=== PATIENT | female | born 1995 | race Caucasian/White ===

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

== ENCOUNTER 2018-03-27 07:01 | Emergency (ER) | payer OTHER ==
--- OUTSIDE RECORDS SUMMARY | 2018-03-27 07:16 | XMS REPORT | Continuity of Care Document ---
:1995 Author Organization [facility] Support Name Relationship Address Phone KAREEM ANGUIANO JR [address] [place] [address] KAREEM ANGUIANO JR [address] [place] [address] Allergies and Intolerances Code Code Allergy Type Reaction Severity Start End Status System Substance Date Date 20231214 RXNorm Motrin Propensity to Bleeding Severe Active adverse 4 reactions to drug (disorder) 555086 RXNorm Bee Pollen Drug allergy swelling Mild Active (disorder) 4 Medications RxNorm Medication Dose Route Instructions Start Date End Date Status Precare 1 tab oral orally every day Active Problems Code Code System Problem Name Start Date End Date Status 219146781 SNOMED-CT Hematochezia 03/27/2013 U Active 34133092 SNOMED-CT Abdominal pain 03/27/2013 U Active Procedures No data in the system Results Laboratory Results Order: URINALYSIS ROUTINE Specimen Source : Body Site: Legend: (G,H)=High, (GG,HH,CH,#H)=Above High Threshold, (#,L)=Low, (##,CL,#L,LL)=Below Low Threshold, (C,CC,CA,#A,A)=Abnormal LOINC Test Result Flag Range Units Date 5778-6 1Color Ur YELLOW 03/15/2018 15:57 65588-9 1Turbidity Ur Ql CLEAR CLEAR 03/15/2018 15:57 5811-5 1Sp Gr Ur Strip 1.020 1.000-1.030 03/15/2018 15:57 5803-2 1pH Ur Strip 5.0 5.0-8.0 03/15/2018 15:57 60362-8 1WBC # Ur Strip NEGATIVE NEGATIVE 03/15/2018 15:57 5802-4 1Nitrite Ur Ql Strip NEGATIVE NEGATIVE 03/15/2018 15:57 5804-0 1Prot Ur Strip-mCnc NEGATIVE NEGATIVE mg/dL 03/15/2018 15:57 5792-7 1Glucose Ur Strip-mCnc NORMAL NORMAL mg/dL 03/15/2018 15:57 5797-6 1Ketones Ur Strip-mCnc NEGATIVE NEGATIVE mg/dL 03/15/2018 15:57 91983-1 1Urobilinogen Ur NORMAL NORMAL mg/dL 03/15/2018 15:57 Strip-mCnc 68843-4 1Bilirub Ur Strip-mCnc NEGATIVE NEGATIVE mg/dL 03/15/2018 15:57 5794-3 1Hgb Ur Ql Strip NEGATIVE NEGATIVE 03/15/2018 15:57 Performing Lab Footnotes:[facility] - [id number] - [address] [place] [address] GENESIS [id number] Order: VAGINITIS PANEL Specimen Source: Body Site: Legend: (G,H)=High, (GG,HH,CH,#H)=Above High Threshold, (#,L)=Low, (##,CL,#L,LL)=Below Low Threshold , (C,CC,CA,#A,A)=Abnormal LOINC Test Result Flag Range Units Date 44408-2 1Trichomonas Genital Cult NEGATIVE NEGATIVE 03/15/2018 15:57 10730-1 1G vaginalis DNA Vag Ql NEGATIVE NEGATIVE 03/15/2018 15:57 bDNA 58435-1 1Candida DNA Vag Ql PCR NEGATIVE NEGATIVE 03/15/2018 15:57 1Methodology: DNA Probe Performing Lab Footnotes:[facility] - [id number] - [address] [place] [address] GENESIS Frankel [id number] Microbiology Results w Susceptibilities Order: CULTURE URINE Specimen Source: Urine Body Site: Urine specimen collection, catheterizedCultural Observations:Growth not [id number] Lab Footnotes: [facility] - [id number] - [address] [place] [address] GENESIS [id number] Social History Code Code System Social History Description Dates Observed Observation [id number] SNOMED CT Current Smoking Unknown if ever Status smoked UNK AdministrativeGender Sex Assigned At Unknown Vital Signs No data in the system Goals Section No data in the system Health Concerns No data in the systemEncounter Diagnosis Date Code Code System Diagnosis Status N76.0 ICD10 ACUTE VAGINITIS Active Advance Directives PT STATES NO ADVANCE DIRECTIVES Directive Type Effective Date Store Detective Notes Supporting Document Name Address Phone No Directive Type 05/28/2017 5:18:00 Not Specified Not Specified Not Specified None No specified AM *RHIO - CONSENT IS YES Directive Type Effective Date Store Detective Notes Supporting Document Name Address Phone No Directive Type 10/06/2015 8:38:30 Not Specified Not Specified Not Specified None No specified AM Family History No data in the system Functional Status No data in the system Immunizations Vaccine Code Code System Vaccine Name Date Status UTD Completed Medical Equipment No data in the system Mental Status No data in the system Assessment and Plan Assessments No data in the systemPlan Of Treatment No data in the systemPending Tests No data in the system Hospital Discharge Instructions No data in the system Reason for Visit No data in the system
--- OUTSIDE RECORDS SUMMARY | 2018-03-27 07:16 | XMS REPORT | Continuity of Care Document ---
:1995 External Reference #:[id number] Author Name Gaby Mijares CNM Address [address] [place] [address] Care Team Providers Name Role Phone Glenn Chisholm Primary Care Physician Unavailable Payers Type Date Identification Numbers Payment Provider Subscriber Effective: Policy Number: [id number] Lifetime Benefit Milesthong Camacho 2014 Solution Group Number: [id number] [address] [address] PayID: [id number] [address] Policy Number: [id number] Fidelis Man[employer] Medicaid Latosha Pineda Camacho PayID: [id number] [address] [place] [address] Policy Number: [id number] Medicaid [place] Latosha Pineda Camacho PayID: [id number] [address] [place] [address] Advance Directives Description No Information Available Problems Date Description Provider Status Onset: 12/23/2013 Sprain of wrist Gagan Valdez IV, MD Active Sarah Sanders Onset: 03/06/2014 Contraception care management Ryan Palomino CNM Active Onset: 03/24/2014 Hematuria syndrome Ryan Palomino CNM Active Onset: 03/24/2014 Aftercare Following Surgery Of Gagan Valdez IV, MD Active [facility] Sarah Sanders Onset: 09/01/2014 Vaginitis and vulvovaginitis Ryan Palomino CNM Active Onset: 01/03/2017 Primigravida Rey Prajapati MD Active Onset: 03/28/2017 Encounter for supervision of Rey Prajapati MD Active other normal , third trimester Onset: 04/15/2013 Vaginitis and vulvovaginitis Ryan Palomino CNM Resolved Resolved: 03/06/2014 Family History Date Family Member(s) Problem(s) Comments General Diabetes General Multiple Sclerosis (MS) General Cancer General Rheumatoid Arthritis (mother) Father None Mother Multiple Sclerosis (MS) Children 1 daughter - A&W Siblings 3 alive and well Paternal Grandfather due to Heart Attack () Paternal Grandmother due to Alzheimer's Disease () Maternal Grandfather Heart Disease Maternal Grandfather due to Lung Cancer () Maternal Grandfather Lung Cancer Maternal Grandmother Unknown Social History Type Date Description Comments Sex Unknown Education Highest level completed, 12th grade Marital Status Significant Other Lives With Significant Other Lives With Daughter Diet Healthy, Well Balanced Sleep Sleep Alot Sleep Typically sleeps 10 hours a night Smoke-Free Home is smoke-free Pets several dogs Pets 1 cat Occupation Unemployed Hand Dominance Right-handed Abuse No history of abuse Tobacco Use Start: Unknown Never Smoked Cigarettes Smoking Status Reviewed: Never Smoked Cigarettes 03/15/18 ETOH Use Denies alcohol use Recreational Drug Use Denies Drug Use Tobacco Use Start: Unknown Patient has never smoked Exercise Type/Frequency Exercises regularly Currently Active Patient is currently sexually active Last Lagro 2 days ago Condom Use Always Contraceptive Methods Current methods include levonorgestrel IUD Contraceptive Methods Past methods include condoms Age 1st Lagro 17 Years Old # Partners in a Lifetime over 5 # Partners in a Lifetime Has been with current partner for 3 years STD's No STD History POOJA: 06/09/2017 Estimated Date of Based on LMP Delivery POOJA: 05/24/2017 Estimated Date of Based on 1st Delivery Ultrasound Allergies, Adverse Reactions, Alerts Date Description Reaction Status Severity Comments 11/09/2017 NKDA Active 04/15/2013 NKDA Inactive 01/23/2014 Ibuprofen Inactive Caused bleeding 06/28/2017 Metronidazole Inactive rash Medications Medication Date Status Form Strength Qnty SIG Indications Ordering Provider Mirena (52 MG) 11/07 Active IUD 20mcg/24H 1unit Gaby Albino Qiu CNM Metronidazole 11/09 Hx Tablets 500mg 14tab 1 by Gaby s mouth Rodrick - twice a -Reginald, 11/09 day for 7 CN /2017 days Metronidazole 11/09 Hx Tablets 500mg 14tab 1 by Gaby s mouth Rodrick - twice a -Reginald, 12/19 day for 7 days No Active 11/07 Hx Unknown Medications /2017 - 11/07 Loestrin Fe 05/27 10/09 Hx Tablets 1-20mg-mc 28tab 1 daily Z39.2 g s Nellie - Georgette, [facility] 11/07 Clindesse 06/29 Hx Cream 2% 15gm use applicato Nellie - r Georgette, [facility] 11/07 intravagi pratibha x 3 nights Metrogel-Vaginal 06/27 Hx Gel 0.75% 1tube one applicato Nellie - rful Georgette, [facility] 06/28 every bedtime x 5 d Norethindrone 06/26 Hx Tablets 0.35mg 1pack i by Z39.2 mouth Nellie - every day Georgette, [facility] 10/09 Terazol 7 04/10 Hx Cream 0.4% 45gm 1 applicato Tony, - rful x 7 CN 04/17 /2016 11/22 Hx Tablets 28-0.8mg 90tab 1 by Danyell /2017 s mouth [place], - every day [facility] 11/07 compatib ae w/ pt's insurance No Active 10/31 Hx Unknown Medications /2016 - 11/22 Metronidazole 04/26 Hx Tablets 500mg 14tab 1 by s mouth Nellie - twice a Georgette, [facility] 10/31 day for days No Active 04/22 Hx Unknown Medications /2015 - 04/26 Metronidazole 12/20 Hx Tablets 500mg 14tab 1 by Elizabeth Gracia s mouth Kirill Robles, - twice a 05/22 day for days No Active 12/17 Hx Unknown Medications /2015 - 12/17 Xulane 12/17 Hx Patches 150-35mcg 3unit use N76.0 Elizabeth Gracia /2015 Weekly /24HR s weekly as Kirill Robles - directed 05/22 Sulfamethoxazole/ 12/17 Hx Tablets 800-160mg 6tabs 1 tab by N76.0 Elizabeth Gracia Trimethoprim mouth Van Riper, - twice a 05/22 day for days Fluconazole 09/02 Hx Tablets 150mg 1tabs take 1 tablet by Nellie - bruno for ROZINA Palomino 05/08 1 dose /2015 Nitrofurantoin 03/24 Hx Capsules 100mg 14cap 1 by V72.41 Marjoria Monohydrate/Macro s mouth Nellie crystals - twice a ROZINA Palomino /2014 Acetaminophen-Cod 01/23 Hx Tablets 300-30mg 30tab 1-2 tabs Gagan perdomo # s by mouth Kaempffe - every 6 IV 03/05 hours as Faaos, needed Facs for pain Voltaren 12/23 Hx Gel 1% 1Tube disp 1-100 g Kaempffe - tube IV 03/05 apply 2 Faaos, grams to Facs affected joint up to 4 times daily Ortho Evra 12/02 Hx Patches 150-35mcg 3unit 1 patch Weekly /24HR s each week Nellie - x 3 wks. RZOINA Palomino 05/19 1 patch free week. repeat cycle every 4 wks. Metronidazole 04/16 Hx Tablets 500mg 14tab 1 po bid s for 7 - ROZINA Palomino 07/02 No Active 04/15 Hx [facility] Nellie Palomino CNM 04/15 Medroxyprogestero 04/15 Hx Suspension 150mg/ml 1unit bring to [facility] ne s office Nellie Palomino CNM 12/02 Abx For Infected 00 Hx Unknown Tooth /0000 - 04/22 Amoxicillin Hx Tablets 500mg 1 by Unknown /0000 mouth - three 10/31 times day Reglan 00 Hx Tablets 5mg 1 by Unknown /0000 mouth prn - 10/31 Reeders 0000 Hx Tablets 5-325mg take 1-2 Unknown /0000 by mouth - every 6 10/31 hours needed. Monistat 7 Simply 00 Hx Cream 2% sig as Unknown Cure /0000 directed - 12/04 Medications Administered in Office Medication Date Status Form Strength Qnty SIG Indications Ordering Provider Therapeutic/Pr Administered Injection Ryan ophylactic/Liliane Agustin Palomino CNM Inj(Subcu/Im) (Specify Drug) Immunizations Description No Information Available Vital Signs Date Vital Result Comment 03/15/2018 3:51pm Weight 129.00 lb Weight 58.514 kg BMI (Body Mass Index) 21.0 kg/m2 BP Systolic 94 mmHg BP Diastolic 50 mmHg Height 65.75 inches 5'5.75" Height in cm's 167.0 cm 1 Parity 1 12/19/2017 10:43am Weight 131.00 lb Weight 59.422 kg BP Systolic 96 mmHg BP Diastolic 60 mmHg 11/14/2017 3:24pm Weight 131.00 lb Weight Percentile 55th Weight 59.422 kg BP Systolic 90 mmHg BP Diastolic 58 mmHg Height Percentile 3 % 11/07/2017 3:10pm BP Systolic 98 mmHg BP Diastolic 54 mmHg 07/31/2017 2:09pm Weight 139.00 lb Weight Percentile 68th Weight 63.050 kg BMI (Body Mass Index) 22.6 kg/m2 Body Mass Index Percentile 61 % BP Systolic 104 mmHg BP Diastolic 60 mmHg Height 65.75 inches 5'5.75" Height in cm's 167.0 cm Height Percentile 72 % Last Menstrual Period [id number] 1 Parity 1 07/31/2017 12:39pm Height 65.75 inches 5'5.75" Height in cm's 167.0 cm Height Percentile 72 % 1 Parity 1 06/26/2017 8:13am Weight 142.00 lb Weight Percentile 72nd Weight 64.411 kg BMI (Body Mass Index) 23.1 kg/m2 Body Mass Index Percentile 65 % BP Systolic 104 mmHg BP Diastolic 50 mmHg Height 65.75 inches Height in cm's 167.0 cm Height Percentile 72 % 1 Parity 1 11/22/2016 11:49am Weight 121.00 lb Weight Percentile 39th Weight 54.886 kg BMI (Body Mass Index) 19.7 kg/m2 Body Mass Index Percentile 25 % BP Systolic 108 mmHg BP Diastolic 60 mmHg Height 65.75 inches 5'5.75" Measured Today Height in cm's 167.0 cm Height Percentile 72 % Last Menstrual Period [id number] 1 Parity 0 11/07/2016 4:07pm Weight 122.00 lb Weight Percentile 42nd Weight 55.339 kg BMI (Body Mass Index) 20.3 kg/m2 Body Mass Index Percentile 34 % BP Systolic 120 mmHg BP Diastolic 68 mmHg Height 65 inches 5'5" Height in cm's 165.1 cm Height Percentile 61 % Last Menstrual Period [id number] 1 04/22/2016 2:36pm Weight 122.00 lb Weight Percentile 44th Weight 55.339 kg BMI (Body Mass Index) 20.3 kg/m2 Body Mass Index Percentile 36 % BP Systolic 108 mmHg BP Diastolic 64 mmHg Body Temperature 98.4 F Height 65 inches 5'5" Height in cm's 165.1 cm Height Percentile 62 % Last Menstrual Period [id number] 0 03/22/2016 11:12am Weight 118.00 lb Weight Percentile 36th Weight 53.525 kg BMI (Body Mass Index) 19.6 kg/m2 Body Mass Index Percentile 27 % BP Systolic 102 mmHg BP Diastolic 60 mmHg Height 65 inches 5'5" Height in cm's 165.1 cm Height Percentile 62 % 0 12/18/2015 8:34am Weight 118.00 lb Weight Percentile 38th Weight 53.525 kg BP Systolic 110 mmHg BP Diastolic 70 mmHg 0 09/01/2014 8:02am Weight 119.00 lb Weight Percentile 46th Weight 53.978 kg BMI (Body Mass Index) 19.8 kg/m2 Body Mass Index Percentile 37 % BP Systolic 108 mmHg BP Diastolic 62 mmHg Height 65 inches 5'5" Height in cm's 165.1 cm Height Percentile 64 % Last Menstrual Period [id number] 0 03/24/2014 1:00pm Weight 116.00 lb Weight Percentile 43rd Weight 52.618 kg BMI (Body Mass Index) 19.3 kg/m2 Body Mass Index Percentile 32 % BP Systolic 104 mmHg BP Diastolic 58 mmHg Body Temperature 98.1 F Height 65 inches 5'5" Height in cm's 165.1 cm Height Percentile 65 % Last Menstrual Period [id number] 0 03/06/2014 1:41pm Weight 116.00 lb Weight Percentile 43rd Weight 52.618 kg BMI (Body Mass Index) 19.3 kg/m2 Body Mass Index Percentile 33 % BP Systolic 112 mmHg BP Diastolic 68 mmHg Height 65 inches 5'5" Height in cm's 165.1 cm Height Percentile 65 % 0 01/23/2014 11:24am BP Systolic 108 mmHg BP Diastolic 78 mmHg Heart Rate 90 /min Respiratory Rate 18 /min 12/02/2013 3:42pm Weight 116.00 lb Weight Percentile 45th Weight 52.618 kg BMI (Body Mass Index) 19.3 kg/m2 Body Mass Index Percentile 34 % BP Systolic 92 mmHg BP Diastolic 58 mmHg Height 65 inches 5'5" Height in cm's 165.1 cm Height Percentile 65 % Last Menstrual Period [id number] 0 11/26/2013 10:19am Weight 115.00 lb Weight Percentile 43rd Weight 52.164 kg BMI (Body Mass Index) 19.1 kg/m2 Body Mass Index Percentile 32 % BP Systolic 118 mmHg BP Diastolic 68 mmHg Heart Rate 78 /min Height 65 inches 5'5" Height in cm's 165.1 cm Height Percentile 65 % O2 % BldC Oximetry 99 % 09/27/2013 3:01pm Weight 118.00 lb Weight Percentile 50th Weight 53.525 kg BMI (Body Mass Index) 19.6 kg/m2 Body Mass Index Percentile 40 % BP Systolic 110 mmHg BP Diastolic 68 mmHg Height 65 inches 5'5" Height in cm's 165.1 cm Height Percentile 66 % 0 07/02/2013 2:40pm Weight 116.00 lb Weight Percentile 47th Weight 52.618 kg BMI (Body Mass Index) 19.3 kg/m2 Body Mass Index Percentile 37 % BP Systolic 120 mmHg BP Diastolic 64 mmHg Height 65 inches 5'5" Height in cm's 165.1 cm Height Percentile 66 % 04/15/2013 8:51am Weight 115.00 lb Weight Percentile 47th Weight 52.164 kg BMI (Body Mass Index) 19.1 kg/m2 Body Mass Index Percentile 36 % BP Systolic 114 mmHg BP Diastolic 60 mmHg Height 65 inches 5'5" Height in cm's 165.1 cm Height Percentile 67 % Last Menstrual Period [id number] Results Test Date Facility Test Result H/L Range Note Urinalysis Routine 03/15/2018 [facility] Color YELLOW [phone] Appearance CLEAR Clear Specific [place] 1.020 1.000-1.030 pH 5.0 5.0-8.0 Leukocytes NEGATIVE Negative Nitrate NEGATIVE Negative Protein NEGATIVE mg/dL Negative Glucose NORMAL mg/dL Normal Ketone NEGATIVE mg/dL Negative Urobilinogen NORMAL mg/dL Normal Bilirubin NEGATIVE mg/dL Negative Hemoglobin NEGATIVE Negative Laboratory test 03/15/2018 [facility] Culture Urine <pending> finding [phone] GC Chlamydia Amp 11/07/2017 [facility] Chlamydia NEGATIVE Negative 1 Assay [phone] GC NEGATIVE Negative 2 Vaginitis Panel 11/07/2017 [facility] Trichomonas NEGATIVE Negative [phone] Antigen Gardnerella Antigen POSITIVE Negative Leanne Antigen NEGATIVE Negative Vagpnl Methodology Methodology: DNA <SEE NOTE> 3 Vaginitis Panel 06/26/2017 [facility] Trichomonas NEGATIVE Negative [phone] Antigen Gardnerella Antigen POSITIVE Negative Leanne Antigen NEGATIVE Negative Vagpnl Methodology Methodology: DNA <SEE NOTE> 4 GC Chlamydia Amp 06/26/2017 [facility] Specimen Type Endocervical Swa 5 Assay [phone] <SEE NOTE> Chlamydia NEGATIVE Negative 6 GC NEGATIVE Negative 7 GCCT Amp Methodology Methodology: Nuc <SEE NOTE> 8 Group B Strep 04/27/2017 [facility] Culture CULTURE 9 Culture [phone] OBSERVAT <SEE NOTE> Vaginitis 04/06/2017 [facility] Trichomonas NEGATIVE Negative Panel [phone] Antigen Gardnerella Antigen NEGATIVE Negative Leanne Antigen POSITIVE Negative Vagpnl Methodology Methodology: DNA <SEE NOTE> 10 CBC W/Auto Differential 03/01/2017 [facility] WBC 11.4 K/uL High 4.8-10.8 [phone] RBC 4.30 M/uL 4.20-5.40 Hemoglobin 13.6 gm/dL 12.0-16.0 Hematocrit 39.9 % 36.0-48.0 MCV 92.7 fL 80.0-100.0 MCHC 34.2 % 30.0-36.5 MCH 31.7 pg 27.0-34.0 RDW 12.1 % 11.0-15.0 Platelet 230 K/uL 130-450 MPV 7.9 fL 6.0-12.0 NE% 80 % 37-80 Ly% 13 % 10-50 Mo% 6 % 0-12 Eo% 1 % <=8 Ba% 0 % <=3 NE# 9.1 K/uL High 1.8-8.6 Lymph# 1.5 K/uL 0.5-5.0 Bea[place]# 0.6 K/uL 0.0-1.3 Eos# 0.1 K/uL 0.0-0.9 Baso# 0.0 K/ul 0.0-0.3 Laboratory test 03/01/[facility] Glucose 1HR 114 mg/dL <= 130 finding [phone] (OB) [place] CBC W/Auto 01/03/2017 [facility] WBC 9.2 K/uL 4.8-10.8 Differential [phone] RBC 4.30 M/uL 4.20-5.40 Hemoglobin 13.3 gm/dL 12.0-16.0 Hematocrit 39.3 % 36.0-48.0 MCV 91.5 fL 80.0-100.0 MCHC 33.7 % 30.0-36.5 MCH 30.8 pg 27.0-34.0 RDW 11.9 % 11.0-15.0 Platelet 251 K/uL 130-450 MPV 7.3 fL 6.0-12.0 NE% 75 % 37-80 Ly% 17 % 10-50 Mo% 7 % 0-12 Eo% 1 % <=8 Ba% 0 % <=3 NE# 6.9 K/uL 1.8-8.6 Lymph# 1.6 K/uL 0.5-5.0 Bea[place]gard# 0.6 K/uL 0.0-1.3 Eos# 0.1 K/uL 0.0-0.9 Baso# 0.0 K/ul 0.0-0.3 With 11/22/2016 [facility] Rubella IgG 2.80 index Immune 11 Type/Screen [phone] Immunity >0.99 Titer [So] Hepatitis B Surface Antigen NON REACTIVE Non Reactive Syphilis RPR 11/22/2016 [facility] RPR NON REACTIVE Non Reactive [phone] RPR Methodology Methodology: Non <SEE NOTE> 12 Blood Type & Screen 11/22/2016 [facility] Abo/Rh Typing A Rh Positive [phone] Specimen Expiration Date [id number] Antibody Screen Negative HIV Ag/AB 11/22/2016 [facility] HIV Ag/Ab Combo NON Non 13 Combo [phone] REACTIVE Reactive Laboratory 11/22/2016 [facility] Culture Urine CULTURE 14 test finding [phone] OBSERVAT <SEE NOTE> Urine Drug 11/22/2016 [facility] Amphetamine + NEGATIVE Negative Screen [phone] mAmp Barbiturate NEGATIVE Negative Benzodiazepine NEGATIVE Negative Opiates NEGATIVE Negative Cocaine NEGATIVE Negative THC NEGATIVE Negative PCP NEGATIVE Negative Methadone NEGATIVE Negative Utox Range 1 A Positive Drug <SEE NOTE> 15 Utoxrefvista Positive Cut-Off <SEE NOTE> 16 GC Chlamydia 11/22/2016 [facility] Specimen Type Endocervical Swa 17 Amp Assay [phone] <SEE NOTE> Chlamydia NEGATIVE Negative 18 GC NEGATIVE Negative 19 GCCT Amp Methodology Methodology: Nuc <SEE NOTE> 20 Urinalysis Routine 11/22/2016 [facility] Color YELLOW [phone] Appearance CLEAR Clear Specific [place] 1.015 1.000-1.030 pH 6.5 5.0-8.0 Leukocytes NEGATIVE Negative Nitrate NEGATIVE Negative Protein NEGATIVE mg/dL Negative Glucose NORMAL mg/dL Normal Ketone TRACE mg/dL Negative Urobilinogen NORMAL mg/dL Normal Bilirubin NEGATIVE mg/dL Negative Hemoglobin NEGATIVE Negative Laboratory test 11/07/2016 [facility] Culture Urine CULTURE 21 finding [phone] OBSERVAT <SEE NOTE> Urinalysis Routine 11/07/2016 [facility] Color YELLOW [phone] Appearance CLOUDY Clear Specific [place] 1.015 1.000-1.030 pH 8.0 5.0-8.0 Leukocytes 2+ Negative Nitrate NEGATIVE Negative Protein NEGATIVE mg/dL Negative Glucose NORMAL mg/dL Normal Ketone NEGATIVE mg/dL Negative Urobilinogen NORMAL mg/dL Normal Bilirubin NEGATIVE mg/dL Negative Hemoglobin NEGATIVE Negative Urine Microscopic 11/07/2016 [facility] Urine Micro URINE MICROSCOPI 22 [phone] <SEE NOTE> WBC 5-10 /HPF 0-2 RBC NONE SEEN /HPF None Seen Bacteria MANY /HPF None Seen Epithelial Cells FEW /HPF None Seen Amorphous Sediment 2+ /HPF None Seen GC Chlamydia 04/22/2016 [facility] Specimen Type Endocervical Swa 23 Amp Assay [phone] <SEE NOTE> Chlamydia NEGATIVE Negative 24 GC NEGATIVE Negative 25 GCCT Amp Methodology Methodology: Nuc <SEE NOTE> 26 Vaginitis Panel 04/22/2016 [facility] Trichomonas NEGATIVE Negative [phone] Antigen Gardnerella Antigen POSITIVE Negative Leanne Antigen NEGATIVE Negative Vagpnl Methodology Methodology: DNA <SEE NOTE> 27 STD Panel 12/18/2015 [facility] Hep B Core NON REACTIVE Non Reactive -LVR [phone] Ab, Ig M Hep A Ab, IgM NEGATIVE Negative Hepatitis B Surface Antigen NON REACTIVE Non Reactive Hep C Virus Ab (HCV) 0.10 s/coratio 0.00-0.99 28 Syphilis RPR 12/18/2015 [facility] RPR NON REACTIVE Non Reactive [phone] RPR Methodology Methodology: Non <SEE NOTE> 29 HIV Ag/AB 12/18/2015 [facility] HIV Ag/Ab NON REACTIVE Non Reactive 30 Combo [phone] Combo Culture 12/18/2015 [facility] Culture Routine 31 Urine [phone] suscepti <SEE NOTE> Isolate 1 >100,000 col/mL <SEE NOTE> 32 Isolate 2 . Urinalysis Routine 12/18/2015 [facility] Color YELLOW [phone] Appearance CLOUDY Clear Specific [place] 1.015 1.000-1.030 pH 6.5 5.0-8.0 Leukocytes 1+ Negative Nitrate POSITIVE Negative Protein NEGATIVE mg/dL Negative Glucose NORMAL mg/dL Normal Ketone NEGATIVE mg/dL Negative Urobilinogen NORMAL mg/dL Normal Bilirubin NEGATIVE mg/dL Negative Hemoglobin 1+ Negative Urine Microscopic 12/18/2015 [facility] Urine Micro URINE MICROSCOPI 33 [phone] <SEE NOTE> WBC >100 /HPF 0-2 RBC NONE SEEN /HPF None Seen Bacteria MODERATE /HPF None Seen Epithelial Cells MODERATE /HPF None Seen GC Chlamydia 12/18/2015 [facility] Specimen Type Endocervical Swa 34 Amp Assay [phone] <SEE NOTE> Chlamydia NEGATIVE Negative 35 GC NEGATIVE Negative 36 GCCT Amp Methodology Methodology: Str <SEE NOTE> 37 Vaginitis Panel 12/18/2015 [facility] Trichomonas NEGATIVE Negative [phone] Antigen Gardnerella Antigen POSITIVE Negative Leanne Antigen NEGATIVE Negative Vagpnl Methodology Methodology: DNA <SEE NOTE> 38 Vaginitis Panel 09/01/2014 [facility] Trichomonas NEGATIVE Negative [phone] Antigen Gardnerella Antigen NEGATIVE Negative Leanne Antigen POSITIVE Negative Vagpnl Methodology Methodology: DNA <SEE NOTE> 39 GC Chlamydia 09/01/2014 [facility] Specimen Type Endocervical Swa 40 Amp Assay [phone] <SEE NOTE> Chlamydia NEGATIVE Negative 41 GC NEGATIVE Negative 42 GCCT Amp Methodology Methodology: Str <SEE NOTE> 43 Urine Microscopic 03/24/2014 [facility] Urine Micro URINE MICROSCOPI 44 [phone] <SEE NOTE> WBC 10-25 /HPF 0-2 RBC 10-25 /HPF None Seen 45 Bacteria FEW /HPF None Seen Epithelial Cells FEW /HPF None Seen Vaginitis Panel 03/24/2014 [facility] Trichomonas NEGATIVE Negative [phone] Antigen Gardnerella Antigen NEGATIVE Negative Leanne Antigen NEGATIVE Negative Vagpnl Methodology Methodology: DNA <SEE NOTE> 46 GC Chlamydia 03/24/2014 [facility] Specimen Type Endocervical Swa 47 Amp Assay [phone] <SEE NOTE> Chlamydia NEGATIVE Negative 48 GC NEGATIVE Negative 49 GCCT Amp Methodology Methodology: Str <SEE NOTE> 50 Laboratory test 03/24/2014 [facility] Culture Urine CULTURE 51 finding [phone] OBSERVAT <SEE NOTE> Urinalysis Routine 03/24/2014 [facility] Color YELLOW [phone] Appearance CLEAR Clear Specific [place] 1.020 1.000-1.030 pH 6.0 5.0-8.0 Leukocytes TRACE Negative Nitrate NEGATIVE Negative Protein NEGATIVE mg/dL Negative Glucose NORMAL mg/dL Normal Ketone NEGATIVE mg/dL Negative Urobilinogen NORMAL mg/dL Normal Bilirubin NEGATIVE mg/dL Negative Hemoglobin 1+ Negative CBC W/Auto Differential 12/23/2013 [facility] ([facility]) WBC 4.8 K/uL 4.5-13.[address] [place] [address] [phone] RBC 4.95 M/uL 4.30-5.30 Hemoglobin 15.0 gm/dL 12.0-16.0 Hematocrit 44.5 % 36.0-46.0 MCV 89.9 fL 77.0-95.0 MCHC 33.8 % 30.0-36.5 MCH 30.4 pg 25.0-33.0 RDW 11.7 % 11.0-15.0 Platelet 261 K/uL 130-450 MPV 7.4 fL 6.0-12.0 NE% 59 % 28-78 Ly% 34 % 18-54 Mo% 6 % 0-12 Eo% 2 % <=11 Ba% 0 % <=2 NE# 2.8 K/uL 1.3-10.5 Lymph# 1.6 K/uL 0.8-7.3 [place]# 0.3 K/uL 0.0-1.6 Eos# 0.1 K/uL 0.0-1.5 Baso# 0.0 K/ul 0.0-0.3 Laboratory test 12/23/2013 [facility] ([facility]) C Reactive <0.3 mg/dL 0.0-0.[address] [place] [address] [phone] Sedrate Esr 3.0 mm/hr 0.0-20.0 Rheumatoid 12/23/2013 [facility] ([facility]) Rheumatoid Factor NEGATIVE Negative Factor-RF [address] [place] [address] [phone] RF Methodology Methodology: Lat <SEE NOTE> 52 Anita Titer 12/23/2013 [facility] ([facility]) Anita NEGATIVE Negative [address] [place] [address] [phone] Anita Methodology Test Substrate: <SEE NOTE> 53 Vaginitis Panel 04/15/2013 [facility] Trichomonas NEGATIVE Negative [phone] Antigen Gardnerella Antigen POSITIVE Negative Leanne Antigen NEGATIVE Negative Vagpnl Methodology Methodology: DNA <SEE NOTE> 54 GC Chlamydia 04/15/2013 [facility] Specimen Type Endocervical Swa 55 Amp Assay [phone] <SEE NOTE> Chlamydia NEGATIVE Negative 56 GC NEGATIVE Negative 57 GCCT Amp Methodology Methodology: Str <SEE NOTE> 58 1 A negative result does not rule out Chlamydia trachomatis infection because results are dependent on adequate specimen collection, absence of inhibitors, and sufficient DNA to be detected. Methodology: Nucleic Acid Amplification (EMPERATRIZ) 2 A negative result does not rule out Neisseria gonorrhoeae infection because results are dependent on adequate specimen collection, absence of inhibitors, and sufficient DNA to be detected. 3 Methodology: DNA Probe 4 Methodology: DNA Probe 5 Endocervical Swab 6 A negative result does not rule out Chlamydia trachomatis infection because results are dependent on adequate specimen collection, absence of inhibitors, and sufficient DNA to be detected. 7 A negative result does not rule out Neisseria gonorrhoeae infection because results are dependent on adequate specimen collection, absence of inhibitors, and sufficient DNA to be detected. 8 Methodology: Nucleic Acid Amplification Test (NAAT) 9 CULTURE OBSERVATIONS CULTURE OBSERVATIONS Streptococcus agalactiae (Group B) was NOT isolated 10 Methodology: DNA Probe 11 Non-immune <0.90 Equivocal 0.90 - 0.99 Immune >0.99 12 Methodology: Nontreponemal Flocculation Test 13 Methodology: [employer] [id number] Chemiluminescent Microparticle Assay Specificityof >99% Sensitivity of >94% 14 CULTURE OBSERVATIONS CULTURE OBSERVATIONS Growth not obtained 15 A Positive Drug Screen will not be Confirmed unless requested by the Physician. Please contact the Lab ([phone]) within 5 days for Confirmation Testing. 16 Positive Cut-Off Values Alva Measurement Supervisor Analyzer Amphetamine/ mAMP 1000 ng/ml Barbiturate 200 ng/ml Benzodiazepine 200 ng/ ml Cocaine 300 ng/ml Opia te 300 ng/ml Marijuana (THC) 50 ng/ml Phencyclidine (PCP) 25 ng/ml Methadone 300 ng/ml 17 Endocervical Swab 18 A negative result does not rule out Chlamydia trachomatis infection because results are dependent on adequate specimen collection, absence of inhibitors, and sufficient DNA to be detected. 19 A negative result does not rule out Neisseria gonorrhoeae infection because results are dependent on adequate specimen collection, absence of inhibitors, and sufficient DNA to be detected. 20 Methodology: Nucleic Acid Amplification Test (NAAT) 21 CULTURE OBSERVATIONS CULTURE OBSERVATIONS Light Mixed growth consistent with vaginal yolande present 22 URINE MICROSCOPIC EXAM 23 Endocervical Swab 24 A negative result does not rule out Chlamydia trachomatis infection because results are dependent on adequate specimen collection, absence of inhibitors, and sufficient DNA to be detected. 25 A negative result does not rule out Neisseria gonorrhoeae infection because results are dependent on adequate specimen collection, absence of inhibitors, and sufficient DNA to be detected. 26 Methodology: Nucleic Acid Amplification Test (NAAT) 27 Methodology: DNA Probe 28 Non Reactive: < 0.79 Equviocal: 0.80 - 0.99 Reactive: > 1.00 . The CDC recommends that a positive HCV antibody result be followed up with a HCV Nucleic Acid Amplification test. 29 Methodology: Nontreponemal Flocculation Test 30 Methodology: ALVA AREA SUPERVISOR [id number] Chemiluminescent Microparticle Assay Specificityof >99% Sensitivity of >94% 31 Routine susceptibility testing of Staphylococcus saprophyticus urine isolates is not performed. Acute, uncomplicated urinary tract infections commonly respond to nitrofurantoin, trimethoprim sulfa or a fluoroquinolone. 32 >100,000 col/mL Staphylococcus saprophyticus 33 URINE MICROSCOPIC EXAM 34 Endocervical Swab 35 A negative result does not rule out Chlamydia trachomatis infection because results are dependent on adequate specimen collection, absence of inhibitors, and sufficient DNA to be detected. 36 A negative result does not rule out Neisseria gonorrhoeae infection because results are dependent on adequate specimen collection, absence of inhibitors, and sufficient DNA to be detected. 37 Methodology: Strand Displacement Amplification 38 Methodology: DNA Probe 39 Methodology: DNA Probe 40 Endocervical Swab 41 A negative result does not rule out Chlamydia trachomatis infection because results are dependent on adequate specimen collection, absence of inhibitors, and sufficient DNA to be detected. 42 A negative result does not rule out Neisseria gonorrhoeae infection because results are dependent on adequate specimen collection, absence of inhibitors, and sufficient DNA to be detected. 43 Methodology: Strand Displacement Amplification 44 URINE MICROSCOPIC EXAM 45 The [employer] has defined Microscopic Hematuria as 3 or more RBC per high powered field from a single positive urinalysis with microscopy. 46 Methodology: DNA Probe 47 Endocervical Swab 48 A negative result does not rule out Chlamydia trachomatis infection because results are dependent on adequate specimen collection, absence of inhibitors, and sufficient DNA to be detected. 49 A negative result does not rule out Neisseria gonorrhoeae infection because results are dependent on adequate specimen collection, absence of inhibitors, and sufficient DNA to be detected. 50 Methodology: Strand Displacement Amplification 51 CULTURE OBSERVATIONS CULTURE OBSERVATIONS Mixed growth consistent with vaginal yolande present including Rare Streptococcus agalactiae (Group B) MRSA screen test negative 52 Methodology: Latex Agglutination 53 Test Substrate: Human Epithelial (HEp-2) Cells Methodology: Indirect Fluorescent Antibody Test 54 Methodology: DNA Probe 55 Endocervical Swab 56 A negative result does not rule out Chlamydia trachomatis infection because results are dependent on adequate specimen collection, absence of inhibitors, and sufficient DNA to be detected. 57 A negative result does not rule out Neisseria gonorrhoeae infection because results are dependent on adequate specimen collection, absence of inhibitors, and sufficient DNA to be detected. 58 Methodology: Strand Displacement Amplification Procedures Date Code Description Status 11/14/2017 55492 Ultrasound,Pelvic (Nonobstertic) Completed 11/07/2017 25572 IUD Insertion Of Intrauterine Device Completed 05/28/2017 48737 Vaginal Delivery,Antepartum And Care Completed 05/10/2017 89343 Non-Stress Test Completed 01/03/2017 93914 Ultrasound Uterus,Real Time W.Image Documentation,After Completed 1St Trim 11/07/2016 56111 Ultrasound, Uterus, Real Time W/Image Completed Documentation, 02/04/2014 09302 Arthroscopy Wrist Excision/Repair Triang Completed Fibrocartilage/Debride 09/27/2013 40961 Therapeutic/Prophylactic/Diagnostic Inj(Subcu/Im) (Specify Completed Drug) 07/02/2013 90615 Therapeutic/Prophylactic/Diagnostic Inj(Subcu/Im) (Specify Completed Drug) 04/15/2013 95874 Therapeutic/Prophylactic/Diagnostic Inj(Subcu/Im) (Specify Completed Drug) 1997 63688 IV Infusion Up To 1 Hour Completed Encounters Type Date Location Provider Dx Diagnosis Office Visit 12/19/2017 [facility] Gaby Z30.431 Encounter for 10:45a And Gynecology [facility] routine checking of k, CNM intrauterine contracep dev Office Visit 11/14/2017 [facility] Gaby Z30.431 Encounter for 3:15p [facility] routine checking of k, CNM intrauterine contracep dev Office Visit 04/06/2017 [facility] Sandrine Jimenez, O47.03 False labor before 2:15p And Gynecology CNM 37 completed weeks of gest, third tri Z3A.33 33 weeks gestation of Office Visit 11/07/2016 2:00p [facility] Delores Pool, N91.1 Secondary And Gynecology Ups M.D. amenorrhea Z34.01 Encntr for suprvsn of normal first preg, first trimester Office Visit 04/22/2016 2:45p [facility] Ryan Ballard Z32.02 Encounter for And Gynecology ROZINA Palomino test, Ups result negative N92.6 Irregular menstruation, unspecified N89.8 Other specified noninflammatory disorders of vagina N77.1 Vaginitis, vulvitis and vulvovaginitis in dis classd elswhr Office Visit 03/22/2016 11:00a [facility] Elizabeth Roy Z01.419 Encntr for ring maker And Gynecology MD Travis exam (general) (routine) w/o abn findings Z32.02 Encounter for test, result negative Office Visit 12/18/2015 8:30a [facility] Elizabeth Roy N76.0 Acute vaginitis And Gynecology MD Travis Z30.018 Encounter for initial prescription of other contraceptives N39.0 Urinary tract infection, site not specified Z32.02 Encounter for test, result negative Office Visit 09/01/2014 8:00a [facility] Marrubyrifinesse Ballard V74.5 Screening And Gynecology Georgette, CNM Examination Venereal Disease V69.2 Sexual Behavior High Risk Office Visit 03/24/2014 1:00p [facility] Candelariorifinesse Ballard V72.41 Test And Gynecology Georgette, CNM Negative 599.70 Hematuria, Unspecified Office Visit 03/06/2014 1:45p [place] Ryan Ballard V25.9 Contraceptive Obstetrics And Georgette, CNM Management Unspec Gynecology Ups V72.41 Test Negative Office Visit 01/23/2014 [facility] V Ipson, 842.00 Sprains & Strains 10:30a Joint Jr Rocha Wrist & Hand Unspec Site Office Visit 01/13/2014 [facility] Gagan 842.00 Sprains & Strains 3:30p Joint - Cait Valdez IV, MD Wrist & Hand Faaos, Facs Unspec Site Office Visit 12/23/2013 [facility] 842.00 Sprains & Strains 10:00a Joey Valdez IV, MD Wrist & Hand Faaos, Facs Unspec Site Office Visit 12/02/2013 [facility] Ryan Ballard V25.9 Contraceptive 3:45p And Gynecology Georgette, CNM Management Unspec Office Visit 11/26/2013 [facility] 842.00 Sprains & Strains 10:00a Orthopaedic MD Susan [facility] Unspec Site Office Visit 07/02/2013 [facility] Ryan Ballard V72.41 Test 3:15p And Gynecology Georgette, CNM Negative V25.9 Contraceptive Management Unspec 626.4 Irregular Menstrual Cycle Office Visit 04/15/2013 8:45a [facility] Ryan Ballard V72.41 Test And Gynecology Georgette, CNM Negative V25.9 Contraceptive Management Unspec 626.4 Irregular Menstrual Cycle Plan of Treatment 03/15/2018 - Gaby Mijares, CNMN76.0 Acute shftifmgrN05.0 DysuriaComments:Affirm collected and sent. Will treat if necessary. Straight cath urine sent d/t h/o kidney issues and pt current c/o cramping. WIll treat if necessary. RTO for annual or prn
[2018-03-27 07:22] VITALS: BP 129/76
[2018-03-27] MEDS ORDERED: Ibuprofen TAB* 600 MG PO ONE (07:30)
[2018-03-27] MEDS ORDERED: Cephalexin CAP* 500 MG PO ONE (07:30)
--- NOTE | 2018-03-27 07:39 | UC ---
Breast Complaint - HPI Summary HPI Summary: right breast pain x 1 day woke up this morning with the discomfort pain is on right breast, no radiation , pain is 6 out of 10 , worse with touching , better with rest, no fever, + body aches , no discharge - History of Current Complaint Hx Obtained From: Patient Breast Chief Complaint: Pain, Nipple, Breast - right side, Right, Inflammation Onset/Duration: Started Hours Ago - 5, Still Present Timing: Constant Breast Pain Radiates To: Other: - no radiation Breast Pain Aggravating Factors: Palpation Breast Pain Alleviating Factors: Heat Breast Associated Signs/Symptoms: Warmth - Allergy/Home Medications Allergies/Adverse Reactions: Allergies Allergy/AdvReac Type Severity Reaction Status Date / Time bee venom protein (honey bee) Allergy Anaphylatic Verified 03/27/18 07:17 Shock Home Medications: Home Medications FLUoxetine CAP* [PROzac CAP*] 20 mg PO DAILY 03/27/18 [History Confirmed ] Levonorgestrel (Iud) [Mirena IUD] 20 mcg IU ONCE 03/27/18 [History Confirmed ] PMH/Surg Hx/FS Hx/Imm Hx Psychological History: Anxiety - Surgical History Surgical History: Yes Surgery Procedure, Year, and Place: right wrist repair of torn tendon - Family History Known Family History: Positive: Hypertension - Social History Alcohol Use: None Substance Use Type: None Smoking Status (MU): Never Smoked Tobacco - Immunization History Vaccination Up to Date: Yes Review of Systems All Other Systems Reviewed And Are Negative: Yes Constitutional: Positive: Negative Skin: Positive: Negative Eyes: Positive: Negative ENT: Positive: Negative Gastrointestinal: Positive: Negative Genitourinary: Positive: Negative Is Patient Immunocompromised?: No Physical Exam Triage Information Reviewed: Yes Appearance: Well-Appearing, No Pain Distress, Well-Nourished Vital Signs: Initial Vital Signs Temp 97.3 F 03/27/18 07:19 Pulse 97 03/27/18 07:19 Resp 16 03/27/18 07:19 BP 129/76 03/27/18 07:19 Pulse Ox 100 03/27/18 07:19 Vital Signs Reviewed: Yes Eye Exam: Normal Eyes: Positive: Conjunctiva Clear ENT: Positive: Normal ENT inspection, Hearing grossly normal, Pharynx normal Neck: Positive: Supple, Nontender, No Lymphadenopathy Respiratory: Positive: Chest non-tender, Lungs clear, Normal breath sounds Cardiovascular: Positive: RRR, No Murmur, Pulses Normal Skin Exam: Normal UC Physical Exam Vital Signs On Initial Exam: Initial Vitals Temp Pulse Resp BP Pulse Ox 97.3 F 97 16 129/76 100 03/27/18 07:19 03/27/18 07:19 03/27/18 07:19 03/27/18 07:19 03/27/18 07:19 - Breast Exam Breast Description: Firm Breast Condition: Hard, Tender - right breast Breast: Nipple Alignment Asymmetrical Breast Pain Course/Dx - Diagnoses Provider Diagnoses: Cellulitis of female breast Discharge - Sign-Out/Discharge Documenting (check all that apply): Patient Departure All imaging exams completed and their final reports reviewed: No Studies - Discharge Plan Condition: Stable Disposition: HOME Prescriptions: Cephalexin CAP* [Keflex CAP*] 500 mg PO TID #30 cap Patient Education Materials: Cellulitis (ED) Referrals: Glenn Regalado [Primary Care Provider] - 5 Days Additional Instructions: cellulitis of right breast , please remove the nipple piercing use warm compresses Keflex x 10 days take Ibuprofen as needed for pain and fever follow up with your pcp in 5 days sooner if not better or getting worse - Billing Disposition and Condition Condition: STABLE Disposition: Home
== END 2018-03-27 07:39 | disposition home or self-care (01) ==
LOC: UCCORT 07:01
DX: N61.0 Mastitis without abscess (principal); Z91.030 Bee allergy status
CPT/HCPCS: 99212; A9270-GY; G0463

== ENCOUNTER 2019-03-04 13:15 | Emergency (ER) | payer OTHER ==
[2019-03-04 13:38] VITALS: BP 102/65
--- NOTE | 2019-03-04 14:56 | UC ---
Abdominal Pain Female HPI - HPI Summary HPI Summary: 23-year-old female complaining of upper mid abdominal pain. She has had this since last week and was seen at [facility] and referred to the emergency room there. She had lab work done, gallbladder sonogram, CT of the abdomen pelvis with contrast, serum test. All tests were negative. The diagnosis at discharge was "gas" according to the patient. She states in the past 24 hours the abdominal pain has worsened, it has remained in the epigastric area and right upper quadrant. She feels nauseous today and feels like she's had fever and chills. She feels better when she urinates however the pain does not completely go away. She denies any urinary symptoms, no burning on urination no frequency. She denies any lower abdominal pain and no abnormal vaginal discharge. She is sexually active and is trying to conceive. - History of Current Complaint Chief Complaint: UCAbdominalPain Stated Complaint: ABD PAIN Time Seen by Provider: 03/04/19 13:46 Hx Obtained From: Patient Hx Last Menstrual Period: two weeks ago but bled yesterday ?: No - attempting to conceive. Onset/Duration: Gradual Onset, Lasting Days Timing: Constant Severity Initially: Mild Severity Currently: Moderate Pain Intensity: 3 Location: Discrete At: RUQ, Epigastric Radiates: No Character: Aching, Dull, Sharp Aggravating Factor(s): Nothing Alleviating Factor(s): Other: - Patient states the pain improves after urination , but does not completely resolve. Associated Signs and Symptoms: Positive: Fever, Nausea Allergies/Adverse Reactions: Allergies Allergy/AdvReac Type Severity Reaction Status Date / Time bee venom protein (honey bee) Allergy Anaphylatic Verified 03/04/19 13:37 Shock Home Medications: Home Medications Acetaminophen [Pain Relief] 1,000 mg PO ONCE PRN 03/04/19 [History Confirmed ] EPINEPHrine [Epipen] 1 dose IM ONCE PRN 03/04/19 [History Confirmed 03/04/19] PMH/Surg Hx/FS Hx/Imm Hx Previously Healthy: Yes - Surgical History Surgical History: Yes Surgery Procedure, Year, and Place: right wrist repair of torn tendon - Family History Known Family History: Positive: Hypertension - Social History Lives: With Family Alcohol Use: None Substance Use Type: None Smoking Status (MU): Never Smoked Tobacco - Immunization History Vaccination Up to Date: Yes Review of Systems All Other Systems Reviewed And Are Negative: Yes Constitutional: Positive: Fever, Chills - Patient feels as though she has had fever and chills but she did not register a temperature at home. Gastrointestinal: Positive: Abdominal Pain - Pain mostly in the epigastric area and right upper quadrant, worse since last evening., Nausea Genitourinary: Positive: Negative Is Patient Immunocompromised?: No Physical Exam Triage Information Reviewed: Yes Appearance: Well-Appearing, No Pain Distress, Well-Nourished Vital Signs: Initial Vital Signs Temp 98.1 F 03/04/19 13:33 Pulse 79 03/04/19 13:33 Resp 18 03/04/19 13:33 BP 102/65 03/04/19 13:33 Pulse Ox 98 03/04/19 13:33 Vital Signs Reviewed: Yes Eye Exam: Normal ENT: Positive: Hearing grossly normal, Pharynx normal, TMs normal, Uvula midline Neck: Positive: Supple, Nontender, No Lymphadenopathy Respiratory: Positive: Lungs clear, Normal breath sounds, No respiratory distress, No accessory muscle use Cardiovascular: Positive: RRR, No Murmur, Pulses Normal, Brisk Capillary Refill Abdomen Description: Positive: No Organomegaly, Soft, Other: - Very tender on palpation in the right upper quadrant and epigastric area. No rigidity, rebound or guarding. Lower abdomen and pelvic area is nontender.. Negative: CVA Tenderness (R), CVA Tenderness (L), Distended, Guarding, Hepatomegaly, McBurney's Point Tenderness, Splenomegaly Bowel Sounds: Positive: Present Musculoskeletal Exam: Normal Neurological Exam: Normal Psychological Exam: Normal Skin Exam: Normal Abd Pain Female Course/Dx - Course Course Of Treatment: Urinalysis was positive for leukocytes. At this point because the patient does not have lower abdominal pain or urinary symptoms so I don't feel it is garcia to start her on an antibiotic until she gets the worsening upper abdominal pain evaluated in the emergency room. Patient preferred to go by private car to [facility] for further evaluation. Urine hCG here was negative. - Differential Dx/Diagnosis Provider Diagnosis: Epigastric abdominal pain, RUQ abdominal pain Discharge ED - Sign-Out/Discharge Documenting (check all that apply): Patient Departure All imaging exams completed and their final reports reviewed: No Studies - Discharge Plan Condition: Fair Disposition: HOME Referrals: Glenn Chisholm PA [Primary Care Provider] - Additional Instructions: After the evaluation by the nurse practitioner, it is recommended that you go to the emergency room for further evaluation of the abdominal pain where you should receive additional testing that can be completed in the emergency department. It is recommended that you go directly to the emergency department. This evaluation may include blood work or imaging. This testing will be directed and decided by the provider that evaluates you within the emergency department. If pain becomes worse, you feel lightheaded or you develop uncontrolled vomiting, or have any other concerns while you are driving to the emergency room, please assembler for puller over hand and call 911. Do not eat or drink anything until you are evaluated in the emergency room - Billing Disposition and Condition Condition: FAIR Disposition: Home
== END 2019-03-04 15:06 | disposition home or self-care (01) ==
LOC: UCEAST 13:15
DX: R10.13 Epigastric pain (principal); R10.11 Right upper quadrant pain; Z91.030 Bee allergy status
CPT/HCPCS: 81003; 84702; 87086; 99212; G0463

== ENCOUNTER 2019-03-04 15:35 | Emergency (ER) | payer OTHER ==
[2019-03-04 16:33] LABS: ABS Eosinophils 0.1 10^3/ul (0-0.6); ABS Lymphocytes 1.2 10^3/ul (1.0-4.8); ABS Monocytes 0.7 10^3/ul (0-0.8); ABS Neutrophils 8.9 10^3/ul (1.5-7.7); Eosinophil % 0.5 %; Hematocrit 42 % (35-47); Hemoglobin 14.5 g/dL (12.0-16.0); Lymphocyte % 10.7 %; Mean Corpuscular HGB Conc 35 g/dL (31-36); Mean Corpuscular Hemoglobin 30 pg (27-31); Mean Corpuscular Volume 88 fL (80-97); Mean Platelet Volume 7.9 fL (7.4-10.4); Platelet Count 272 10^3/uL (150-450); Red Blood Count 4.78 10^6 /uL (3.70-4.87); Red Cell Distribution Width 13 % (10-15); White Blood Count 10.9 10^3/uL (3.5-10.8)
[2019-03-04 16:56] LABS: HCG Pregnancy < 0.60 mIU/mL
[2019-03-04 17:10] LABS: ALT 9 U/L (7-52); AST 13 U/L (13-39); Albumin 4.3 g/dL (3.2-5.2); Albumin/Globulin Ratio 1.4 (1-3); Alkaline Phosphatase 51 U/L (34-104); Anion Gap 8 mmol/L (2-11); BUN/Creatinine Ratio 21.5 (8-20); Blood Urea Nitrogen 14 mg/dL (6-24); C Reactive Protein 78.58 mg/L (<8.01); CO2 Carbon Dioxide 27 mmol/L (22-32); Calcium 9.5 mg/dL (8.6-10.3); Chloride 101 mmol/L (101-111); EGFR African American 139.2 (>60); EGFR Non-African American 115.1 (>60); Glucose 88 mg/dL (70-100); Potassium 3.7 mmol/L (3.5-5.0); Sodium 136 mmol/L (135-145); Total Protein 7.3 g/dL (6.4-8.9)
--- NOTE | 2019-03-04 18:05 | ED ---
Abdominal Pain/Female - HPI Summary HPI Summary: This pt is a 23 y/o female presenting to [facility] from [facility] c/o intermittent upper mid abdominal pain since 02/26/19, worsening since last night. Pt notes she has periumbilical pain all the time. Her pain is worse at night when lying down. She feels like she is constantly sweating and is very nauseous. She ate yesterday for the first time since 3 days ago but feels like eating aggravates her abd pain. Pt had some blood in her stools yesterday and also some vaginal bleeding when she wiped. Denies vomiting, diarrhea, constipation, vaginal bleeding or discharge, dysuria, hematuria, back pain, shoulder pain. Denies fever, chills, erythema of eyes, sore throat, chest pain, SOB, cough, myalgia, edema, rash, or dizziness. Pt has tried taking laxatives, gas relief, tylenol with no relief. Pt was seen at an Urgent Care 3 days ago and was referred to the ED in [place] where she had lab work, gallbladder sonogram, CT of the abdomen/pelvis with contrast. All these tests were negative. Today pt went to Urgent Care and was referred to the ED. Pt is trying to conceive. Her LMP: 2 weeks ago. - History of Current Complaint Chief Complaint: EDAbdPain Stated Complaint: ABDOMINAL PAIN PER PT Time Seen by Provider: 03/04/19 16:55 Hx Obtained From: Patient Hx Last Menstrual Period: two weeks ago but bled yesterday Onset/Duration: Lasting Days, Still Present Timing: Days Severity Currently: Moderate Pain Intensity: 8 Pain Scale Used: 0-10 Numeric Location: Epigastric, Umbilical Radiates: No Character: Sharp Aggravating Factor(s): Nothing Alleviating Factor(s): Nothing Associated Signs and Symptoms: Positive: Blood in Stool, Nausea. Negative: Fever, Cough, Chest Pain, Vaginal Bleeding, Vaginal Discharge, Vomiting, Diarrhea Allergies/Adverse Reactions: Allergies Allergy/AdvReac Type Severity Reaction Status Date / Time bee venom protein (honey bee) Allergy Anaphylatic Verified 03/04/19 13:37 Shock Home Medications: Home Medications EPINEPHrine [Epipen 2-Paul] 0.3 mg IM ONCE PRN 03/04/19 [History Confirmed ] PMH/Surg Hx/FS Hx/Imm Hx Endocrine/Hematology History: Denies: Hx Diabetes Cardiovascular History: Denies: Hx Hypertension - Surgical History Surgical History: Yes Surgery Procedure, Year, and Place: right wrist repair of torn tendon Infectious Disease History: No Infectious Disease History: Denies: Hx Clostridium Difficile, Hx Hepatitis, Hx Human Immunodeficiency Virus (HIV), Hx of Known/Suspected MRSA, Hx Shingles, Hx Tuberculosis, Hx Known/ Suspected VRE, Hx Known/Suspected VRSA, History Other Infectious Disease, Traveled Outside the [place] in Last 30 Days - Family History Known Family History: Positive: Hypertension - Social History Alcohol Use: None Substance Use Type: Reports: None Smoking Status (MU): Never Smoked Tobacco Review of Systems Positive: Skin Diaphoresis. Negative: Fever, Chills Negative: Erythema Negative: Sore Throat Negative: Chest Pain Negative: Shortness Of Breath, Cough Positive: Abdominal Pain, Nausea. Negative: Vomiting Negative: dysuria, discharge, hematuria, other - NEGATIVE: vaginal bleeding Negative: Myalgia, Edema Negative: Rash Neurological: Other - NEGATIVE: dizziness All Other Systems Reviewed And Are Negative: Yes Physical Exam - Summary Physical Exam Summary: Constitutional: Well-developed, Well-nourished, Alert. (-) Distressed Skin: Warm, Dry HENT: Normocephalic; Atraumatic Eyes: Conjunctiva normal Neck: Musculoskeletal ROM normal neck. (-) JVD, (-) Stridor, (-) Tracheal deviation Cardio: Rhythm regular, rate normal, Heart sounds normal; Intact distal pulses; The pedal pulses are 2+ and symmetric. Radial pulses are 2+ and symmetric. (-) Murmur Pulmonary/Chest wall: Effort normal. (-) Respiratory distress, (-) Wheezes, (-) Rales Abd: Soft, Periumbilical tenderness, epigastric tenderness, RUQ tenderness, (-) Distension, (-) Guarding, (-) Rebound. Patient has navel piercing. 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 No adnexal tenderness. No cervical motion tenderness. Normal appearing discharge. Musculoskeletal: (-) Edema Lymph: (-) Cervical adenopathy Neuro: Alert, Oriented x3 Psych: Mood and affect Normal Triage Information Reviewed: Yes Vital Signs On Initial Exam: Initial Vitals Temp Pulse Resp BP Pulse Ox 97.4 F 94 14 113/75 100 03/04/19 15:37 03/04/19 15:37 03/04/19 15:37 03/04/19 15:37 03/04/19 15:37 Vital Signs Reviewed: Yes Procedures - Sedation Patient Received Moderate/Deep Sedation with Procedure: No Diagnostics - Vital Signs Vital Signs Temp Pulse Resp BP Pulse Ox 03/04/19 15:37 97.4 F 94 14 113/75 100 - Laboratory Lab Results: Lab Results 03/04/19 03/04/19 Range/Units 16:21 16:21 WBC 10.9 H (3.5-10.8) 10^3/uL RBC 4.78 (3.70-4.87) 10^6 /uL Hgb 14.5 (12.0-16.0) g/dL Hct 42 (35-47) % MCV 88 (80-97) fL MCH 30 (27-31) pg MCHC 35 (31-36) g/dL RDW 13 (10-15) % Plt Count 272 (150-450) 10^3/uL MPV 7.9 (7.4-10.4) fL Neut % (Auto) 82.1 % Lymph % (Auto) 10.7 % [place] % (Auto) 6.4 % Eos % (Auto) 0.5 % Baso % (Auto) 0.3 % Absolute Neuts (auto) 8.9 H (1.5-7.7) 10^3/ul Absolute Lymphs (auto) 1.2 (1.0-4.8) 10^3/ul Absolute Monos (auto) 0.7 (0-0.8) 10^3/ul Absolute Eos (auto) 0.1 (0-0.6) 10^3/ul Absolute Basos (auto) 0.0 (0-0.2) 10^3/ul Absolute Nucleated RBC 0.0 10^3/ul Nucleated RBC % 0.0 Sodium 136 (135-145) mmol/L Potassium 3.7 (3.5-5.0) mmol/L Chloride 101 (101-111) mmol/L Carbon Dioxide 27 (22-32) mmol/L Anion Gap 8 (2-11) mmol/L BUN 14 (6-24) mg/dL Creatinine 0.65 (0.51-0.95) mg/dL Est GFR ( Amer) 139.2 (>60) Est GFR (Non-Af Amer) 115.1 (>60) BUN/Creatinine Ratio 21.5 H (8-20) Glucose 88 (70-100) mg/dL Calcium 9.5 (8.6-10.3) mg/dL Total Bilirubin 0.50 (0.2-1.0) mg/dL AST 13 (13-39) U/L ALT 9 (7-52) U/L Alkaline Phosphatase 51 (34-104) U/L C-Reactive Protein 78.58 H (<8.01) mg/L Total Protein 7.3 (6.4-8.9) g/dL Albumin 4.3 (3.2-5.2) g/dL Globulin 3.0 (2-4) g/dL Albumin/Globulin Ratio 1.4 (1-3) Lipase 16 (11.0-82.0) U/L Beta HCG, Quant < 0.60 mIU/mL Result Diagrams: 03/04/19 16:21 03/04/19 16:21 Lab Statement: Any lab studies that have been ordered have been reviewed, and results considered in the medical decision making process. Abdominal Pain Fem Course/Dx - Course Course Of Treatment: Pt is a 23 y/o female presenting to [facility] from [facility] c/o intermittent upper mid abdominal pain since 02/26/19, worsening since last night. Pt notes she has periumbilical pain all the time. Her pain is worse at night when lying down. She feels like she is constantly sweating and is very nauseous. She ate yesterday for the first time since 3 days ago but feels like eating aggravates her abd pain. Pt had some blood in her stools yesterday and also some vaginal bleeding when she wiped. Denies vomiting, diarrhea, constipation, vaginal bleeding or discharge, dysuria, hematuria, back pain, shoulder pain. Lab results show WBC of 10.9, CRP of 78.58. UA shows 1+ ketones , 1+ blood, 1+ leukocyte esterase, present squamous epithelial cells. In the ED course the patient was given Zofran, percocet. Ultrasounds of appendix, gallbladder, and transvaginal were ordered. US reports are still pending. Pt will be signed out to Dr. Schmidt pending US results and disposition. - Diagnoses Provider Diagnoses: Epigastric abdominal pain, RUQ abdominal tenderness Discharge ED - Sign-Out/Discharge Documenting (check all that apply): Sign-Out Patient Signing out patient TO: Lisa Schmidt - Discharge Plan Condition: Stable Referrals: Glenn Chisholm PA [Primary Care Provider] - - Attestation Statements Document Initiated by Scribe: Yes Documenting Scribe: Alda David Provider For Whom Scribe is Documenting (Include Credential): Carl Garrido MD Scribe Attestation: IAlda, scribed for Carl Garrido MD on 03/04/19 at 1910. Status of Scribe Document: Ready
[2019-03-04] MEDS ORDERED: Ondansetron INJ* 2 MG/ML VIAL IV ONE ×2 (18:14→20:35)
[2019-03-04 18:26] LABS: Urine Appearance Clear; Urine Bacteria Absent (Absent); Urine Bilirubin Negative (Negative); Urine Blood 1+ (Negative); Urine Color Yellow; Urine Glucose Negative (Negative); Urine Ketones 1+ (Negative); Urine Nitrite Negative (Negative); Urine Protein Negative (Negative); Urine Red Blood Cell Trace(0-2/hpf) (Absent); Urine Specific Gravity 1.027 (1.010-1.030); Urine Squamous Epithelial Cell Present (Absent); Urine Urobilinogen Negative (Negative); Urine White Blood Cell 1+(6-10/hpf) (Absent)
[2019-03-04] MEDS ORDERED: oxyCODONE/Acetamin 5/325 MG* TAB PO ONE (19:04)
--- NOTE | 2019-03-04 19:15 | ED ---
Progress - Progress Note Progress Note: This pt is a signout from Dr. Garrido to Dr. Schmidt at 1900 shift change pending US appendix, gallbladder, transvaginal. Appendix US IMPRESSION: No ultrasound evidence of appendicitis. Gallbladder US IMPRESSION: Normal right upper quadrant ultrasound. No gallstones. Transvaginal US IMPRESSION: Small follicular cyst in right ovary measuring 2.0 cm. No other abnormalities of free fluid. Pt will be discharged. Course/Dx - Course Course Of Treatment: This pt is a signout from Dr. Garrido to Dr. Schmidt at 1900 shift change pending US appendix, gallbladder, transvaginal. Appendix US IMPRESSION: No ultrasound evidence of appendicitis. Gallbladder US IMPRESSION : Normal right upper quadrant ultrasound. No gallstones. Transvaginal US IMPRESSION: Small follicular cyst in right ovary measuring 2.0 cm. No other abnormalities of free fluid. Pt will be discharged. - Diagnoses Provider Diagnoses: Abdominal pain, Right ovarian cyst Discharge ED - Sign-Out/Discharge Documenting (check all that apply): Patient Departure - discharge, Receiving Sign-Out Receiving patient FROM: Carl Garrido - This pt is a signout from Dr. Garrido to Dr. Schmidt at 1900 shift change pending US appendix, gallbladder, transvaginal. - Discharge Plan Condition: Stable Disposition: HOME Patient Education Materials: Ovarian Cyst (ED) Referrals: Glenn Chisholm PA [Primary Care Provider] - 3 Days Additional Instructions: Follow up with your primary care provider within 3 days. Return to the ED for any new or worsening symptoms. - Billing Disposition and Condition Condition: STABLE Disposition: Home - Attestation Statements Document Initiated by Geremias: Yes Documenting Scribe: Jose Alberto Barrera Provider For Whom Geremias is Documenting (Include Credential): Dr. Lisa Schmidt MD Scribe Attestation: Jose Alberto Chaidez scribed for Dr. Lisa Schmidt MD on 03/05/19 at 0116. Scribe Documentation Reviewed: Yes Provider Attestation: The documentation as recorded by the Jose Alberto panchal accurately reflects the service I personally performed and the decisions made by me, Dr. Lisa Schmidt MD Status of Scribe Document: Viewed
[2019-03-04] MEDS ORDERED: Ketorolac INJ* 30 MG/ML 1 ML VIAL IV PUSH ONE (20:35)
[2019-03-04 22:24] VITALS: BP 94/56
[2019-03-05 13:04] LABS: Chlamydia trachomatis NAA Positive (Negative); Neisseria gonorrhoeae (GC) NAA Negative (Negative)
--- NOTE | 2019-03-05 14:48 | ED ---
Imaging and Labs Follow Up Follow Up Type: Labs/Cultures Labs/Culture Result: Positive chlamydia. Patient Communication/Plan: I called and spoke with pt. today at 1440 and discussed results. Will treat with azithromycin 1gm. Advised pt. all sexual partners need to be tested and treated. Pt. understands and agrees with plan. Provider Diagnoses: Abdominal pain, Right ovarian cyst
== END 2019-03-04 22:23 | disposition home or self-care (01) ==
LOC: ED 15:35
DX: N83.201 Unspecified ovarian cyst, right side (principal); R10.13 Epigastric pain
CPT/HCPCS: 36415; 76705; 76830; 80053; 81003; 81015; 83690; 84702; 85025; 86140; 87480; 87491; 87510; 87591; 87660; 87661; 96374; 96375; 99282; A9270-GY; J1885; J2405